=== PATIENT | male | born 1945 | race Caucasian/White ===

== ENCOUNTER 2017-10-19 11:07 | Emergency (ER) | payer OTHER, MEDICARE ==
[~2017-10-19] VITALS: Ht 177.8 cm; Wt 90.0 kg
[2017-10-19 12:40] LABS: BASOPHILS # (AUTO) 0.1 X10'3 (0-0.2); BASOPHILS % (AUTO) 0.8 % (0-1); EOSINOPHILS # (AUTO) 0.1 X10'3 (0-0.9); EOSINOPHILS % (AUTO) 0.4 % (0-6); HEMATOCRIT 50.7 % (42.0-52.0); HEMOGLOBIN 16.7 g/dl (14.0-17.9); LYMPHOCYTES # (AUTO) 1.4 X10'3 (1.1-4.8); LYMPHOCYTES % (AUTO) 11.7 % (21-51); MEAN CORPUSCULAR HEMOGLOBIN 29.8 PG (27.0-31.0); MEAN CORPUSCULAR VOLUME 90.4 FL (78-98); MEAN PLATELET VOLUME 10.6 FL (7.4-10.4); MONOCYTES # (AUTO) 0.7 X10'3 (0-0.9); MONOCYTES % (AUTO) 5.5 % (2-12); NEUTROPHILS # (AUTO) 10.1 X10'3 (1.8-7.7); NEUTROPHILS % (AUTO) 81.6 % (42-75); PLATELET COUNT 149 X10'3 (140-440); RED BLOOD COUNT 5.61 X10'6 (4.70-6.10); WHITE BLOOD COUNT 12.4 X10'3 (4.5-11.0)
[2017-10-19 12:50] LABS: PARTIAL THROMBOPLASTIN TIME 26 SECONDS (22-32); PROTHROMBIN TIME 10.4 SECONDS (9.0-12.0)
[2017-10-19 12:54] LABS: ALANINE AMINOTRANSFERASE 32 U/L (12-78); ALBUMIN 3.8 G/DL (3.4-5.0); ALBUMIN/GLOBULIN RATIO 1.1 (1.1-1.5); ALKALINE PHOSPHATASE 98 IU/L (46-116); ANION GAP 8 (8-16); ASPARTATE AMINO TRANSFERASE 23 U/L (10-37); BILIRUBIN,TOTAL 0.4 MG/DL (0.1-1.0); BLOOD UREA NITROGEN 11 MG/DL (7-18); BUN/CREATININE RATIO 11.2 (5.4-32.0); CALCIUM 9.2 MG/DL (8.5-10.1); CHLORIDE 105 MMOL/L (99-107); CREATININE 0.98 MG/DL (0.60-1.10); GLUCOSE 123 MG/DL (70-104); POTASSIUM 3.8 MMOL/L (3.5-5.1); SODIUM 142 MMOL/L (135-145); TOTAL CARBON DIOXIDE 29.2 MMOL/L (24-32); TOTAL PROTEIN 7.4 G/DL (6.4-8.2); eGFR 75 ML/MIN
[2017-10-19 12:58] LABS: LARGE PLATELETS FEW; PLATELET ESTIMATE NORMAL
[2017-10-19] MEDS ORDERED: mag hydrox/Alum hydrox/simeth 30ml oral suspension PO ONE (13:05)
[2017-10-19] MEDS ORDERED: morphine sulfate 8 MG/ML SYRINGE IV ONE (13:05)
[2017-10-19] MEDS ORDERED: LIDOcaine Viscous 15ml cup PO ONE ×2 (13:05→14:30)
[2017-10-19] MEDS ORDERED: normal saline 1000ML IV soln IVB ONE ×2 (13:05→17:45)
[2017-10-19] MEDS ORDERED: iohexol 350MG/ML 100ml bottle IV ONE (13:44)
[2017-10-19] MEDS ORDERED: normal saline 1000ml 1,000 ML IV SCH ×2 (14:26→15:02)
[2017-10-19] MEDS ORDERED: fentaNYL/PF 50MCG/1 ML 2ML syringe IV PRN (14:30)
[2017-10-19] MEDS ORDERED: simethicone 40mg/0.6ml oral drops 30ml MC ONE (14:30)
[2017-10-19] MEDS ORDERED: MIDAZolam 5mg/5ml vial IV PRN (14:30)
[2017-10-19 15:00] VITALS: BP 160/94
[2017-10-19] MEDS ORDERED: magnesium 2GM in 50ml NS 50 ML IV PRN (15:05)
[2017-10-19] MEDS ORDERED: magnesium 4gm in 100ml NS 100 ML IV PRN (15:05)
[2017-10-19] MEDS ORDERED: ondansetron/PF 4mg/2ml inj IV PRN (15:05)
[2017-10-19] MEDS ORDERED: mag hydrox/Alum hydrox/simeth 30ml oral suspension PO PRN (15:05)
[2017-10-19] MEDS ORDERED: morphine sulfate 8 MG/ML SYRINGE IV PRN ×2 (15:05)
[2017-10-19] MEDS ORDERED: bisacodyl 10mg suppository rectal RC PRN (15:05)
[2017-10-19] MEDS ORDERED: potassium Cl 40MEQ/NS 500ml 500 ML IV PRN ×2 (15:05)
[2017-10-19] MEDS ORDERED: acetaminophen 650mg rectal suppository RC PRN (15:05)
[2017-10-19] MEDS ORDERED: fentaNYL/PF 50MCG/1 ML 2ML syringe ONE (15:10)
[2017-10-19] MEDS ORDERED: LIDOcaine Viscous 15ml cup ONE (15:11)
[2017-10-19] MEDS ORDERED: MIDAZolam 1mg/ml 10ml vial ONE (15:11)
[2017-10-19] MEDS ORDERED: piperacillin/tazo 3.375gm/50ml 50 ML IV ONE ×2 (15:15→16:45)
[2017-10-19] MEDS ORDERED: diatrozoate meglu/diatrozoate sod (37% iodine) 120ML oral solution PO ONE (15:25)
[2017-10-19] MEDS ORDERED: diatr meglu/diatrizoate 30ml oral sol.-(3 dose) bottle PO ONE (15:35)
[2017-10-19] MEDS ORDERED: piperacillin/tazo 3.375gm/50ml 50 ML IV SCH (16:00)
[2017-10-19 19:26] VITALS: BP 160/94
[2017-10-20] MEDS ORDERED: K and/or MAG REPLACEMENT MC SCH (08:00)
== END 2017-10-19 19:27 | disposition short-term general hospital (02) ==
LOC: ER 11:08 → ED HOLD 15:02 → UNDOADMIN 15:02 → UNDODISIN 19:26 → ER 19:27
DX: K22.3 Perforation of esophagus (principal); R07.9 Chest pain, unspecified; K21.9 Gastro-esophageal reflux disease without esophagitis; G89.29 Other chronic pain; Z87.891 Personal history of nicotine dependence
CPT/HCPCS: 36415; 71020; 71250; 71275; 74174; 80053; 83605; 84484; 85025; 85610; 85730; 87040; 93005; 96361; 96374; 96375; 96376; 99291; 99292; J2250; J2270; J2543; J3010; J7030; Q9963; Q9967